=== PATIENT | male | born 1955 | race African-American/Black ===

== ENCOUNTER 2017-11-25 18:28 | Emergency (ER) | payer MEDICARE, MEDICAID ==
[~2017-11-25] VITALS: Ht 167.6 cm; Wt 113.0 kg
[~2017-11-25 18:28] MED LIST: FLEXERIL PO; LOSA50TA20 PO; LOSA50TA3 PO; OXYC30TA89 PO; SYMBICORT
[2017-11-25] MEDS ORDERED: SODIUM CHLORIDE 0.9% 1,000 ML IV ONE (18:46)
[2017-11-25] MEDS ORDERED: ONDANSETRON HCL 4MG/2ML VIAL IV STA (18:46)
[2017-11-25] MEDS ORDERED: KETOROLAC 30MG/ML VIAL IV STA (18:46)
[2017-11-25 19:24] LABS: BASOPHILS % 0.3 % (0.0-2.0); EOSINOPHILS % 0.9 % (0.0-5.0); HEMATOCRIT. 36.8 % (42.0-52.0); HEMOGLOBIN. 12.6 g/dL (14.0-18.0); LYMPHOCYTES % 24.4 % (20.0-50.0); MEAN CORPUSCULAR HEMOGLOBIN 32.8 pg (28.0-32.0); MEAN CORPUSCULAR VOLUME 95.6 fL (80.0-94.0); MEAN PLATELET VOLUME 8.2 fl (7.4-10.4); MONOCYTES % 10.9 % (2.0-8.0); NEUTROPHILS % 63.5 % (40.0-76.0); PLATELET 176 x1000/uL (130-400); RED BLOOD CELL COUNT 3.85 mill/uL (4.7-6.1)
[2017-11-25 19:28] LABS: CHLORIDE 103 mEq/L (98-107)
[2017-11-25 19:31] LABS: ETHANOL BLOOD < 10 mg/dL; INR 1.2; PROTHROMBIN TIME 12.3 sec (9.4-11.6)
[2017-11-25] MEDS ORDERED: KCL 20MEQ/100ML PREMIX 100 ML IV NR (20:15)
[2017-11-25 21:11] LABS: CLARITY URINE TURBID (CLEAR); COLOR URINE ORANGE (YELLOW); KETONES URINE NEGATIVE (NEGATIVE); LEUKOCYTE ESTERASE URINE 1+ (NEGATIVE); NITRITE URINE NEGATIVE (NEGATIVE); OCCULT BLOOD URINE 3+ (NEGATIVE); PROTEIN URINE 2+ (NEGATIVE); SPECIFIC GRAVITY URINE 1.027 (1.005-1.030)
[2017-11-25] MEDS ORDERED: CEFTRIAXONE 1 G PREMIX 50 ML IV NR (21:30)
[2017-11-25 21:33] LABS: *AMPHETAMINES SCREEN URINE NEGATIVE (NEGATIVE); *BARBITURATES SCREEN URINE NEGATIVE (NEGATIVE); *BENZODIAZEPINES SCREEN URINE NEGATIVE (NEGATIVE); *COCAINE SCREEN URINE NEGATIVE (NEGATIVE); METHADONE URINE SCREEN NEGATIVE (NEGATIVE); OPIATES URINE SCREEN PRESUMTIVE POSITIVE (NEGATIVE)
[2017-11-25 21:34] LABS: CANNABINOID URINE SCREEN PRESUMTIVE POSITIVE (NEGATIVE); PHENCYCLIDINE URINE SCREEN NEGATIVE (NEGATIVE)
[2017-11-26 00:45] VITALS: BP 138/89
== END 2017-11-26 01:10 | disposition home or self-care (01) ==
LOC: ER 18:28
DX: N39.0 Urinary tract infection, site not specified (principal); N20.0 Calculus of kidney; I10 Essential (primary) hypertension; F17.200 Nicotine dependence, unspecified, uncomplicated; F12.10 Cannabis abuse, uncomplicated
CPT/HCPCS: 36415; 74176; 80053; 80305; 81003; 83690; 85025; 85610; 96361; 96365; 96366; 96368; 96375; 99285; G0482; J0696; J1885; J2405; J3480; J7030; J7040

== ENCOUNTER 2023-09-14 11:59 | Inpatient (IN) | payer OTHER, MEDICAID ==
[~2023-09-14] VITALS: Ht 190.5 cm; Wt 130.6 kg
[~2023-09-14 11:59] MED LIST changes: +LOSA-413 PO; -LOSA50TA20 PO; -LOSA50TA3 PO; +LOSA50TA41 PO; +OXYC-582 PO; -OXYC30TA89 PO
[2023-09-14] MEDS ORDERED: SODIUM CHLORIDE 0.9% 1,000 ML IV ONE (15:00)
[2023-09-14] MEDS ORDERED: DILTIAZEM HCL 5MG/ML 5ML VIAL IV ONE (16:00)
[2023-09-14 16:09] LABS: BASOPHILS % 0.4 % (0.0-2.0); EOSINOPHILS % 0.8 % (0.0-5.0); HEMATOCRIT. 46.3 % (42.0-52.0); HEMOGLOBIN. 15.6 g/dL (14.0-18.0); LYMPHOCYTES % 27.4 % (20.0-50.0); MEAN CORPUSCULAR HEMOGLOBIN 32.9 pg (28.0-32.0); MEAN CORPUSCULAR HGB CONC 33.8 g/dL (31.0-37.0); MEAN CORPUSCULAR VOLUME 97.4 fL (80.0-94.0); MEAN PLATELET VOLUME 9.2 fl (7.4-10.4); MONOCYTES % 12.3 % (2.0-8.0); NEUTROPHILS % 59.1 % (40.0-76.0); PLATELET 182 x1000/uL (130-400); RED BLOOD CELL COUNT 4.76 mill/uL (4.7-6.1); RED CELL DISTRIBUTION WIDTH 13.3 % (11.6-14.6); WHITE BLOOD COUNT 10.2 x1000/uL (4.5-11.0)
[2023-09-14 16:41] LABS: ALANINE AMINOTRANSFERASE 17 IU/L (10-49); ALBUMIN 4.8 g/dL (3.2-4.8); ASPARTATE AMINOTRANSFERASE 21 IU/L (<34); BILIRUBIN TOTAL 0.9 mg/dL (0.1-1.0); CALCIUM 9.6 mg/dL (8.7-10.4); CARBON DIOXIDE 24 mEq/L (21-32); CHLORIDE 102 mEq/L (98-107); CREATININE 0.9 mg/dL (0.6-1.3); GLUCOSE 129 mg/dL (70-105); POTASSIUM 3.4 mEq/L (3.5-5.1); PROTEIN TOTAL 7.9 g/dL (6.0-8.3); SODIUM 137 mEq/L (136-145); THYROID STIMULATING HORMONE 1.92 uIU/mL (0.55-4.78); TROPONIN I HIGH SENSITIVITY 7 ng/L (3.0-53); UREA NITROGEN BLOOD 8 mg/dL (9-23)
[2023-09-14] MEDS: AMPICILLIN SOD/SULBACTAM NA 3 G in SODIUM CHLORIDE 0.9% 100 ML IV SCH ×2 (16:45→22:00)
[2023-09-14] MEDS ORDERED: DILTIAZEM HCL 60MG TABLET PO ONE (18:15)
[2023-09-14 20:00] VITALS: BP 122/73; PULSE 84; RESP 20; TEMP 97.3
[2023-09-15] VITALS (7 sets, daily range): BP systolic 104–122; BP diastolic 61–80; PULSE 62–89; RESP 18–20; TEMP 97.1–97.8
[2023-09-15] MEDS ORDERED: POTASSIUM CHLORIDE 20MEQ TABLET SR PO NR
[2023-09-15] MEDS: ENOXAPARIN 150MG/ML SYR SUBCUT SCH ×2 (02:10→09:44)
[2023-09-15] MEDS ORDERED: AMPICILLIN SOD/SULBACTAM NA 1.5 G in SODIUM CHLORIDE 0.9% 50 ML IV SCH (03:00)
[2023-09-15 06:54] LABS: TROPONIN I HIGH SENSITIVITY 7 ng/L (3.0-53)
[2023-09-15] MEDS: METOPROLOL TARTRATE 50MG TABLET PO SCH ×2 (09:00→17:53)
[2023-09-15] MEDS: HYDROCODONE/ACETAMINOPHEN 5/325MG TABLET PO PRN ×2 (09:43→17:53)
[2023-09-15] MEDS ORDERED: NALOXONE HCL 0.4MG/ML VIAL IV PRN (12:45)
[2023-09-15] MEDS: AMPICILLIN SOD/SULBACTAM NA 1.5 G in SODIUM CHLORIDE 0.9% 50 ML IV SCH ×2 (12:56→17:54)
[2023-09-15] MEDS ORDERED: ACETAMINOPHEN 325MG TABLET PO PRN ×2 (13:15)
[2023-09-15] MEDS ORDERED: IPRATROPIUM/ALBUTEROL 0.5-3(2.5)MG/3ML NEB HHN PRN (13:15)
[2023-09-15] MEDS ORDERED: DOCUSATE SODIUM 100MG CAPSULE PO PRN (13:15)
[2023-09-15] MEDS ORDERED: ONDANSETRON HCL 4MG/2ML INJ IV PRN (13:15)
[2023-09-15] MEDS ORDERED: CLONIDINE 0.1MG TABLET PO PRN (13:15)
[2023-09-15 13:29] LABS: TROPONIN I HIGH SENSITIVITY 5 ng/L (3.0-53)
[2023-09-15 16:07] LABS: DIFFERENTIAL COMMENT 1; HEMATOCRIT. 39.5 % (42.0-52.0); MEAN CORPUSCULAR HEMOGLOBIN 32.4 pg (28.0-32.0); MEAN CORPUSCULAR VOLUME 98.4 fL (80.0-94.0); MEAN PLATELET VOLUME 9.5 fl (7.4-10.4); PLATELET 168 x1000/uL (130-400); RED BLOOD CELL COUNT 4.01 mill/uL (4.7-6.1); WHITE BLOOD COUNT 7.2 x1000/uL (4.5-11.0)
[2023-09-15 16:32] LABS: GIANT PLATELETS 1+; PLATELET ESTIMATE NORMAL
[2023-09-15 16:55] LABS: ALANINE AMINOTRANSFERASE 13 IU/L (10-49); ASPARTATE AMINOTRANSFERASE 13 IU/L (<34); BILIRUBIN TOTAL 0.6 mg/dL (0.1-1.0); CALCIUM 9.2 mg/dL (8.7-10.4); CARBON DIOXIDE 24 mEq/L (21-32); CHLORIDE 104 mEq/L (98-107); CHOLESTEROL 117 mg/dL (<200); CREATINE KINASE 95 IU/L (46-171); CREATINE KINASE MB FRACTION < 0.5 ng/mL (0.5-3.6); CREATININE 0.8 mg/dL (0.6-1.3); GLUCOSE 130 mg/dL (70-105); HDL CHOLESTEROL 37 mg/dL (>55); LDL CHOLESTEROL 89 mg/dL (5-100); POTASSIUM 3.9 mEq/L (3.5-5.1); PROTEIN TOTAL 6.4 g/dL (6.0-8.3); SODIUM 135 mEq/L (136-145); TRIGLYCERIDE 140 mg/dL (0-150); TROPONIN I HIGH SENSITIVITY 5 ng/L (3.0-53); UREA NITROGEN BLOOD 9 mg/dL (9-23)
[2023-09-15] MEDS ORDERED: DIPHENHYDRAMINE 50MG/ML VIAL IV PRN (17:00)
[2023-09-15] MEDS: ENOXAPARIN 30MG/0.3ML SYR SUBCUT SCH (21:15)
[2023-09-16] VITALS: BP 120/68; PULSE 79; RESP 19; TEMP 98
[2023-09-16 00:24] LABS: CREATINE KINASE 100 IU/L (46-171); CREATINE KINASE MB FRACTION < 0.5 ng/mL (0.5-3.6); TROPONIN I HIGH SENSITIVITY 7 ng/L (3.0-53)
[2023-09-16] MEDS: AMPICILLIN SOD/SULBACTAM NA 1.5 G in SODIUM CHLORIDE 0.9% 50 ML IV SCH ×3 (01:10→11:46)
[2023-09-16] MEDS: HYDROCODONE/ACETAMINOPHEN 5/325MG TABLET PO PRN ×2 (01:10→09:27)
[2023-09-16 04:00] VITALS: BP 117/72; PULSE 88; RESP 19; TEMP 97.9
[2023-09-16 06:55] LABS: HEMATOCRIT. 39.5 % (42.0-52.0); HEMOGLOBIN. 13.5 g/dL (14.0-18.0); MEAN CORPUSCULAR HGB CONC 34.2 g/dL (31.0-37.0); MEAN CORPUSCULAR VOLUME 96.3 fL (80.0-94.0); MEAN PLATELET VOLUME 9.5 fl (7.4-10.4); PLATELET 173 x1000/uL (130-400); RED CELL DISTRIBUTION WIDTH 12.5 % (11.6-14.6); WHITE BLOOD COUNT 6.4 x1000/uL (4.5-11.0)
[2023-09-16 07:13] LABS: DIFFERENTIAL COMMENT 1
[2023-09-16 07:18] LABS: CALCIUM 9.1 mg/dL (8.7-10.4); CARBON DIOXIDE 21 mEq/L (21-32); CHLORIDE 105 mEq/L (98-107); CREATININE 0.7 mg/dL (0.6-1.3); GLUCOSE 122 mg/dL (70-105); POTASSIUM 4.1 mEq/L (3.5-5.1); SODIUM 138 mEq/L (136-145); UREA NITROGEN BLOOD 13 mg/dL (9-23)
[2023-09-16 08:00] VITALS: BP 123/78; PULSE 81; RESP 18; TEMP 97.8
[2023-09-16] MEDS ORDERED: METHYLPREDNISOLONE SOD SUCC 40MG/ML (ACT-O-VIAL) IV SCH (09:00)
[2023-09-16] MEDS ORDERED: ASPIRIN 81MG TABLET PO SCH (09:00)
[2023-09-16] MEDS ORDERED: FAMOTIDINE 20MG/2ML VIAL IV SCH (09:00)
[2023-09-16] MEDS: ENOXAPARIN 30MG/0.3ML SYR SUBCUT SCH (09:26)
[2023-09-16] MEDS: METOPROLOL TARTRATE 50MG TABLET PO SCH (09:27)
[2023-09-16 12:00] VITALS: BP 118/76; PULSE 71; RESP 18; TEMP 98
[2023-09-16] MEDS ORDERED: AMPICILLIN/SULBACTAM 3G in SODIUM CHLORIDE 0.9% 100ML IV SCH ×2 (13:00→18:00)
[2023-09-16 16:00] VITALS: BP 141/73; PULSE 83; RESP 18; TEMP 97.9
[2023-09-16] MEDS ORDERED: PRED10TA MT (16:35)
[2023-09-16] MEDS ORDERED: P20 MT (16:35)
[2023-09-16] MEDS ORDERED: METO-539 MT (16:35)
[2023-09-16] MEDS ORDERED: PRED5TAB MT (16:35)
[2023-09-16 17:33] VITALS: BP 141/73; PULSE 83; TEMP 97.9; O2SAT 95
[2023-09-16 17:41] LABS: PLATELET ESTIMATE NORMAL
== END 2023-09-16 18:00 | disposition home or self-care (01) | DRG 158 ==
LOC: ER 11:59 → 7WST 18:06 → EDBEDREQ 18:09
PROVIDERS: ADMIT Internal Medicine; ATTEND Internal Medicine
DX: K04.7 Periapical abscess without sinus (principal); I47.10 Supraventricular tachycardia, unspecified; E78.5 Hyperlipidemia, unspecified; I48.91 Unspecified atrial fibrillation; E87.6 Hypokalemia; I10 Essential (primary) hypertension; E66.9 Obesity, unspecified; F17.210 Nicotine dependence, cigarettes, uncomplicated; Z79.899 Other long term (current) drug therapy; Z68.36 Body mass index [BMI] 36.0-36.9, adult
CPT/HCPCS: 36415; 70486; 71045; 80048; 80053; 80061; 82550; 82553; 83036; 83880; 84443; 84484; 85025; 92610; 93005; 93306; 99291; J0295; J1650; J2920; J3490; J7050